=== PATIENT | female | born 1965 | race Caucasian/White ===

== ENCOUNTER 2017-08-16 15:59 | Emergency (ER) | payer BC ==
[2017-08-16] MEDS ORDERED: Meclizine TAB* 12.5 MG PO ONE (16:28)
[2017-08-16 16:49] LABS: ABS Basophils 0.1 10^3/ul (0-0.2); ABS Eosinophils 0.8 10^3/ul (0-0.6); ABS Monocytes 0.7 10^3/ul (0-0.8); ABS Neutrophils 9.1 10^3/ul (1.5-7.7); ABS Nucleated RBC 0 10^3/ul; Eosinophil % 6.6 % (0-6); Hematocrit 37 % (35-47); Hemoglobin 12.4 g/dl (12.0-16.0); Lymphocyte % 15.7 % (25-47); Mean Corpuscular HGB Conc 33 g/dl (31-36); Mean Corpuscular Hemoglobin 27 pg (27-31); Mean Corpuscular Volume 81 fL (80-97); Mean Platelet Volume 7.9 um3 (7.4-10.4); Nucleated Red Blood Cells % 0; Platelet Count 261 10^3/ul (150-450); Red Blood Count 4.58 10^6/ul (4.0-5.4); Red Cell Distribution Width 14 % (10.5-15); White Blood Count 12.7 10^3/ul (3.5-10.8)
[2017-08-16 17:05] LABS: EGFR Non-African American 79.6 (>60)
--- NOTE | 2017-08-16 17:06 | RAD ---
INDICATION: Vertigo. COMPARISON: There are no prior studies available for comparison. TECHNIQUE: Contiguous axial sections of the brain were obtained from the skull base to the vertex without contrast. FINDINGS: The ventricles, cisterns and sulci are within normal limits. No significant focal abnormality or mass effect is seen. There is no evidence for hemorrhage. No significant focal osseous abnormality is seen. The visualized portion of the paranasal sinuses and mastoid air cells appear clear. IMPRESSION: NO EVIDENCE FOR ACUTE INTRACRANIAL ABNORMALITY.
[2017-08-16 18:54] VITALS: BP 135/80
--- NOTE | 2017-08-16 20:45 | ED ---
Mel Triana Elizabeth, scribed for Sameer Thompson MD on 08/16/17 at 1632 . Dizziness - HPI Summary HPI Summary: This patient is a 52 year old F presenting to [facility] with a chief complaint of sudden onset dizziness that began this afternoon. Symptoms aggravated by sitting and standing. Symptoms alleviated by rest and lying down. Patient reports vomiting before the onset of the dizziness and diaphoresis. Patient denies tinnitus. Pt reports that this feeling was unlike when her blood glucose is abnormal. Patient reports that she took ASA x1 after the dizziness began. Pt regularly takes painkillers for chronic shoulder pain. Pt has hx of diabetes, HTN, and thyroid problems. - History Of Current Complaint Stated Complaint: DIZZINESS/NAUSEA Time Seen by Provider: 08/16/17 16:07 Hx Obtained From: Patient, Family/Efficiency Analyst Onset/Duration: Still Present, Suddenly Timing: Constant Severity Currently: Mild Character: Head Spinning, Dizzy Aggravating Factor(s): Supine To Erect Alleviating Factor(s): Rest, Lying Down Associated Signs And Symptoms: Positive: Nausea, Vomiting, Diaphoresis. Negative: Tinnitus - Allergies/Home Medications Allergies/Adverse Reactions: Allergies Allergy/AdvReac Type Severity Reaction Status Date / Time codeine Allergy Hallucinati Verified 08/16/17 16:15 ons latex Allergy Blisters Verified 08/16/17 16:07 Penicillins Allergy Hives Verified 08/16/17 16:07 Home Medications: Home Medications Aspirin EC TAB* [Ecotrin EC Low Dose 81 MG*] 81 mg PO DAILY 08/16/17 [History Confirmed 08/16/17] Calcium Carbonate [Calcium] 500 mg PO DAILY 08/16/17 [History Confirmed 08/16/17 ] Cyanocobalamin TAB* [Vitamin B12 TAB*] 1,000 mcg PO DAILY 08/16/17 [History Confirmed 08/16/17] Cyclobenzaprine TAB* [Flexeril 10 MG TAB*] 5 - 10 mg PO BEDTIME PRN 08/16/17 [ History Confirmed 08/16/17] Dulaglutide (NF) [Trulicity (NF)] 1.5 mg SUBCUT .Thursdays08/16/17 [History Confirmed 08/16/17] Enalapril TAB* [Vasotec TAB*] 20 mg PO BID 08/16/17 [History Confirmed 08/16/17] Ferrous Sulfate TAB* 325 mg PO DAILY 08/16/17 [History Confirmed 08/16/17] Levothyroxine TAB* [Synthroid TAB*] 200 mcg PO DAILY 08/16/17 [History Confirmed 08/16/17] Magnesium Oxide TAB* [MagOx 400 TAB*] 400 mg PO DAILY 08/16/17 [History Confirmed 08/16/17] [place]-3 Fatty Acids (Nf) [Fish Oil (NF)] 1,000 mg PO DAILY 08/16/17 [History Confirmed 08/16/17] Omeprazole CAP* [Prilosec CAP* 20 MG] 40 mg PO DAILY 08/16/17 [History Confirmed 08/16/17] Pravastatin (NF) [Pravachol (NF)] 40 mg PO DAILY 08/16/17 [History Confirmed 09/28] metFORMIN* [Glucophage 1000 MG TAB *] 1,000 mg PO BID 08/16/17 [History Confirmed 08/16/17] PMH/Surg Hx/FS Hx/Imm Hx Endocrine/Hematology History: Reports: Hx Diabetes Cardiovascular History: Reports: Hx Hypertension Opthamlomology History: Denies: Hx Legally Blind EENT History: Denies: Hx Deafness - Family History Known Family History: Positive: Hypertension Review of Systems Positive: Skin Diaphoresis Negative: Epistaxis Positive: Vomiting, Nausea Neurological: Other - Dizziness All Other Systems Reviewed And Are Negative: Yes Physical Exam - Summary Physical Exam Summary: Appearance: The patient is well-nourished in no acute distress and in no acute pain. Skin: The skin is warm and dry and skin color reflects adequate perfusion. HEENT: The head is normocephalic and atraumatic. The pupils are equal and reactive. The conjunctivae are clear and without drainage. Nares are patent and without drainage. Mouth reveals moist mucous membranes and the throat is without erythema and exudate. The external ears are intact. The ear canals are patent and without drainage. The tympanic membranes are intact. Neck: the neck is supple with full range of motion and non-tender. There are no carotid bruits. There is no neck vein distension. Respiratory: Chest is non-tender. Lungs are clear to auscultation and breath sounds are symmetrical and equal. Cardiovascular: Heart is regular rate and rhythm. There is no murmur or rub auscultated. There is no peripheral edema and pulses are symmetrical and equal. Abdomen: The abdomen is soft and non-tender. There are normal bowel sounds heard in all four quadrants and there is no organomegaly palpated. Musculoskeletal: There is no back tenderness noted. Extremities are non-tender with full range of motion. There is good capillary refill. There is no peripheral edema or calf tenderness elicited. Neurological: Patient is alert and oriented to person, place and time. The patient has symmetrical motor strength in all four extremities. Cranial nerves are grossly intact. Deep tendon reflexes are symmetrical and equal in all four extremities. Psychiatric: The patient has an appropriate affect and does not exhibit any anxiety or depression. Triage Information Reviewed: Yes Vital Signs On Initial Exam: Initial Vitals Temp Pulse Resp BP Pulse Ox 99.2 F 92 22 145/87 96 08/16/17 16:09 08/16/17 16:09 08/16/17 16:09 08/16/17 16:09 08/16/17 16:09 Vital Signs Reviewed: Yes Diagnostics - Vital Signs Vital Signs Temp Pulse Resp BP Pulse Ox 08/16/17 16:09 99.2 F 92 22 145/87 96 - Laboratory Lab Results: Lab Results 08/16/17 08/16/17 08/16/17 Range/Units 16:05 16:42 16:42 WBC 12.7 H (3.5-10.8) 10^3/ul RBC 4.58 (4.0-5.4) 10^6/ul Hgb 12.4 (12.0-16.0) g/dl Hct 37 (35-47) % MCV 81 (80-97) fL MCH 27 (27-31) pg MCHC 33 (31-36) g/dl RDW 14 (10.5-15) % Plt Count 261 (150-450) 10^3/ul MPV 7.9 (7.4-10.4) um3 Neut % (Auto) 71.4 (38-83) % Lymph % (Auto) 15.7 L (25-47) % Allen % (Auto) 5.7 (0-7) % Eos % (Auto) 6.6 H (0-6) % Baso % (Auto) 0.6 (0-2) % Absolute Neuts (auto) 9.1 H (1.5-7.7) 10^3/ul Absolute Lymphs (auto) 2.0 (1.0-4.8) 10^3/ul Absolute Monos (auto) 0.7 (0-0.8) 10^3/ul Absolute Eos (auto) 0.8 H (0-0.6) 10^3/ul Absolute Basos (auto) 0.1 (0-0.2) 10^3/ul Absolute Nucleated RBC 0 10^3/ul Nucleated RBC % 0 Sodium 138 L (139-145) mmol/L Potassium 4.0 (3.5-5.0) mmol/L Chloride 102 (101-111) mmol/L Carbon Dioxide 28 (22-32) mmol/L Anion Gap 8 (2-11) mmol/L BUN 14 (6-24) mg/dL Creatinine 0.76 (0.51-0.95) mg/dL Est GFR ( Amer) 102.4 (>60) Est GFR (Non-Af Amer) 79.6 (>60) BUN/Creatinine Ratio 18.4 (8-20) Glucose 112 H (70-100) mg/dL POC Glucose (mg/dL) 118 H (70-100) mg/dL Lactic Acid (0.5-2.0) mmol/L Calcium 9.4 (8.6-10.3) mg/dL Magnesium 1.4 L (1.9-2.7) mg/dL Total Bilirubin 0.50 (0.2-1.0) mg/dL AST 13 (13-39) U/L ALT 17 (7-52) U/L Alkaline Phosphatase 37 (34-104) U/L Troponin I 0.00 (<0.04) ng/mL Total Protein 7.0 (6.4-8.9) g/dL Albumin 3.9 (3.2-5.2) g/dL Globulin 3.1 (2-4) g/dL Albumin/Globulin Ratio 1.3 (1-3) TSH 0.11 L (0.34-5.60) mcIU/mL 08/16/17 Range/Units 16:42 WBC (3.5-10.8) 10^3/ul RBC (4.0-5.4) 10^6/ul Hgb (12.0-16.0) g/dl Hct (35-47) % MCV (80-97) fL MCH (27-31) pg MCHC (31-36) g/dl RDW (10.5-15) % Plt Count (150-450) 10^3/ul MPV (7.4-10.4) um3 Neut % (Auto) (38-83) % Lymph % (Auto) (25-47) % Allen % (Auto) (0-7) % Eos % (Auto) (0-6) % Baso % (Auto) (0-2) % Absolute Neuts (auto) (1.5-7.7) 10^3/ul Absolute Lymphs (auto) (1.0-4.8) 10^3/ul Absolute Monos (auto) (0-0.8) 10^3/ul Absolute Eos (auto) (0-0.6) 10^3/ul Absolute Basos (auto) (0-0.2) 10^3/ul Absolute Nucleated RBC 10^3/ul Nucleated RBC % Sodium (139-145) mmol/L Potassium (3.5-5.0) mmol/L Chloride (101-111) mmol/L Carbon Dioxide (22-32) mmol/L Anion Gap (2-11) mmol/L BUN (6-24) mg/dL Creatinine (0.51-0.95) mg/dL Est GFR ( Amer) (>60) Est GFR (Non-Af Amer) (>60) BUN/Creatinine Ratio (8-20) Glucose (70-100) mg/dL POC Glucose (mg/dL) (70-100) mg/dL Lactic Acid 1.1 (0.5-2.0) mmol/L Calcium (8.6-10.3) mg/dL Magnesium (1.9-2.7) mg/dL Total Bilirubin (0.2-1.0) mg/dL AST (13-39) U/L ALT (7-52) U/L Alkaline Phosphatase (34-104) U/L Troponin I (<0.04) ng/mL Total Protein (6.4-8.9) g/dL Albumin (3.2-5.2) g/dL Globulin (2-4) g/dL Albumin/Globulin Ratio (1-3) TSH (0.34-5.60) mcIU/mL Result Diagrams: 08/16/17 16:42 08/16/17 16:42 Lab Statement: Any lab studies that have been ordered have been reviewed, and results considered in the medical decision making process. - CT Brain CT CT Interpretation: No Acute Changes - IMPRESSION: NO EVIDENCE FOR ACUTE INTRACRANIAL ABNORMALITY. Dr. Thompson has reviewed this report. CT Interpretation Completed By: Radiologist - EKG 16:06 Cardiac Rate: NL - at 94 BPM EKG Interpretation: left axis deviation Dizzy Course/Dx - Course Course Of Treatment: Ms. Lott presented with a sudden onset of vertiginous symptoms that started after she had been riding in a car for 3 hours. She was quite nauseated with it and vomited a lot. It was worsened with movement and she felt better lying down. She had no gait problem, visual change or speech impairment. She had no tinnitus or nystagmus. Her W/U was negative and she improved completely with meclizine although she said it made her tired. This seems like a peripheral vertigo to me and I am going to treat her symptomatically and encourage F/U if not improved in a couple days. - Diagnoses Provider Diagnoses: Vertigo Discharge - Sign-Out/Discharge Documenting (check all that apply): Discharge/Admit/Transfer - Discharge Plan Condition: Stable Disposition: HOME Prescriptions: Meclizine TAB* [Antivert 12.5 TAB*] 25 mg PO TID PRN #20 tab PRN Reason: Dizziness Patient Education Materials: Vertigo (ED) Referrals: [facility] PHYSICIAN REFERRAL [Outside] - 1 Week Additional Instructions: Follow up with primary care physician if symptoms are not resolved within 1 week. Return to the emergency department with any new or worsening symptoms. - Billing Disposition and Condition Condition: STABLE Disposition: HOME The documentation as recorded by the Mel maciel Elizabeth accurately reflects the service I personally performed and the decisions made by me, Sameer Thompson MD.
== END 2017-08-16 19:00 | disposition home or self-care (01) ==
LOC: ED 15:59
DX: R42 Dizziness and giddiness (principal); E11.9 Type 2 diabetes mellitus without complications; I44.4 Left anterior fascicular block; Z79.899 Other long term (current) drug therapy; Z88.0 Allergy status to penicillin; Z88.8 Allergy status to other drugs, medicaments and biological substances; I10 Essential (primary) hypertension
CPT/HCPCS: 36415; 70450; 80053; 83605; 83735; 84443; 84484; 85025; 93005; 99283; A9270-GY